=== PATIENT | male | born 2005 | race African-American/Black ===

== ENCOUNTER 2024-11-13 16:54 | Emergency (ER) | payer BC, SELFPAY ==
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
[2024-11-13 17:01] VITALS: BP 136/70; PULSE 94; RESP 14; TEMP 36.8; O2SAT 99
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
--- OUTSIDE RECORDS SUMMARY | 2024-11-13 18:55 | XMS_ITS ---
Author Organization [facility] Address [address] [place] [address] Care Team Providers Care Sales Representative Livestock Name Role Phone Rimma Matthews Primary Care Provider Allergies Allergen (clinical drug ingredient) Drug/Non Drug Allergy documented on EMR Reaction Allergy Type Onset Date Status amoxicillin Amoxicillin hives Drug Allergy Act hortencia Penicillin hives Drug Allergy Active REASON FOR VISIT New Patient Psych Eval Medications Medication SIG (Take, Route, Frequency, Duration) Notes Start Date End Date Status QUEtiapine Fumarate 100 MG 1 tablet in the morning Orally Once a day for 30 days - 500 mg total per day 10/25/2024 Active hydrOXYzine Pamoate 25 MG 1 capsule Orally three times daily for 30 days As needed 10/25/2024 Active Haloperidol Decanoate 100 MG/ML INJECT 100 MG IN THE MUSCLE ONCE EVERY MONTH Intramuscular for 30 Days Active Haloperidol Decanoate 100 MG/ML Intramuscular for 30 Days Ac tive QUEtiapine Fumarate 400 MG 1 tablet at night Orally Once a day for 30 days - 500 mg total per day Active Haloperidol 5 MG 1 tablet at night Or al Once a day for 30 days Active FLUoxetine HCl 10 MG 1 capsule Orally On ce a day for 30 days 11/04/2022 Active Divalproex Sodium 500 MG 1 tablet Orally Twice a day for 30 days Active Benztropine Mesylate 1 MG 1 tablet Oral twice daily for 30 days Active Vistaril 25 MG 1 capsule as needed Orally Up to three times daily for 30 day(s) 11/04/2022 Not-Taking Social History Sex Assigned At : Social History Observation Description Sex Assigned At Male Problems Problem Type SNOMED Code ICD Code Onset Dates Problem Status W/U Status Risk Notes Problem Bipolar affective disorder, currently manic, severe, with psychosis ([id number]) Bipolar affective disorder, current episode manic with psychotic symptoms (F31.2) Active confirmed Encounters Encounter Location Date Provider Diagnosis [address] [place] [address] 10/25/2024 Rimma Matthews Bipolar affective disorder, current episode manic with psychotic symptoms F31.2 ; Cannabis abuse F12.10 and Medication monitoring encounter Z51.81 Assessments Encounter Date Diagnosis (ICD Code) Assessment Notes Treatment Notes Treatment Clinical Notes Section Notes 10/25/2024 Bipolar affective disorder, current episode manic with psychotic symptoms (ICD-10 - F31.2) Reports some improvement with current regimen started at hospital. Increasing Seroquel for psychotic features- VH, paranoia. Continue other medications. Labs ordered. 10/25/2024 Cannabis abuse (ICD-10 - F12.10) Discussed with patient that taking or using herbs, such as marijuana, and/or vitamins and supplements may interfere with or alter the way prescription medications work in the body or cause adverse reactions. Patient voiced understanding. 10/25/2024 Medication monitoring encounter (ICD-10 - Z51.81) 10/25/2024 Other Reasons, potential benefits, potential risks, interactions and side effects of all medications were discussed. The Patient/Guardian asked appropriate questions, appeared to understand the answers, and decided to accept the treatment and continue being followed. Alternatives and expected course without treatment were reviewed. The Patient/Guardian is aware of the need to contact the office or return for an earlier appointment if any problems or concerns arise. May also contact the 24-hour crisis hotline (R), refer to the closest emergency room or call 911 if new symptoms arise of existing symptoms worsen. The Patient/Guardian is aware that this would apply to symptoms like: suicidal ideation, homicidal ideation, high risk behaviors, manic symptoms, psychotic symptoms, physical symptoms, or any other symptoms that may be dangerous to self or others. Greater than 50% of time spent on coordination and counseling where psychopharmacology as well as psychotherapeutic interventions were discussed along with review of treatments in the past. Education provided concerning need for adequate hydration. Patient/Guardian verbalized understanding of education, treatment plan and follow up. This session was completed telephonically with client/parental/guardi an consent: Unable to fully determine movement status, assess appearance, affect, AIMS, or vital signs. Plan Of Treatment Medication Medication Name Sig Start Date Stop Date Notes QUEtiapine Fumarate 100 MG 1 tablet in t he morning Orally Once a day for 30 days 10/25/2024 hydrOXYzine Pamoate 25 MG 1 capsule Oral ly three times daily for 30 days 10/25/2024 QUEtiapine Fumarate 400 MG 1 tablet at n ight Orally Once a day for 30 days Haloperidol 5 MG 1 tablet at night Or al Once a day for 30 days FLUoxetine HCl 10 MG 1 capsule Orally On ce a day for 30 days 11/04/2022 Divalproex Sodium 500 MG 1 tablet Orally Twice a day for 30 days Benztropine Mesylate 1 MG 1 tablet Oral twice daily for 30 days Treatment Notes Assessment Notes Bipolar affective disorder, current episode manic with psychotic symptoms Reports some improvement with current regimen started at hospital. Increasing Seroquel for psychotic features- VH, paranoia. Continue other medications. Labs ordered. Cannabis abuse Discussed with patie nt that taking or using herbs, such as marijuana, and/or vitamins and supplements may interfere with or alter the way prescription medications work in the body or cause adverse reactions. Patient voiced understanding. Other Reasons, potential benefits, potential risks, interactions and side effects of all medications were discussed. The Patient/Guardian asked appropriate questions, appeared to understand the answers, and decided to accept the treatment and continue being followed. Alternatives and expected course without treatment were reviewed. The Patient/Guardian is aware of the need to contact the office or return for an earlier appointment if any problems or concerns arise. May also contact the 24-hour crisis hotline (R), refer to the closest emergency room or call 911 if new symptoms arise of existing symptoms worsen. The Patient/Guardian is aware that this would apply to symptoms like: suicidal ideation, homicidal ideation, high risk behaviors, manic symptoms, psychotic symptoms, physical symptoms, or any other symptoms that may be dangerous to self or others. Greater than 50% of time spent on coordination and counseling where psychopharmacology as well as psychotherapeutic interventions were discussed along with review of treatments in the past. Education provided concerning need for adequate hydration. Patient/Guardian verbalized understanding of education, treatment plan and follow up. This session was completed telephonically with client/parental/guardian consent: Unable to fully determine movement status, assess appearance, affect, AIMS, or vital signs. Future Test Test Name Order Date TSH* 11/17/2024 CBC With Differential/Platelet* 11/18/19 25 Valproic Acid (Depakote)(R),S 11/17/2024 CMP 14 Comprehensive Metabolic Panel* Next Appt Details Follow Up: 3 Weeks, Reason: Psych F/U in-office Progress Notes * Mary QUIJANO JrDOB:2004 (19 yo M)Acc No.[id number]:10/25/2024 Patient: Mary LLANOS Jr Provider: Nils Matthews, MSN, PATIENT CASE COORDINATOR, INSPECTOR SHELLS-C :2005 A ge:19 Y S ex:Male Date:10/25/2024 Address:[address] [place], [place] [id number] Subjective: * Chief Complaints: * N ew Patient Psych Eval * HPI: G AD-7 Screenin. Feeling nervous, anxious, or on edge : , Nearly every day-3. 2 . Not being able to stop or control worrying : , Nearly every day-3. 3 . Worrying too much about different things : , Nearly every day-3. 4 . Trouble sleeping/relaxing : , Nearly every day-3. 5 . Being so restless that it is hard to sit still : , Nearly every day-3. 6 . Becoming easily annoyed or irritable : , Nearly every day-3. 7 . Feeling afraid, as if something awful might happen : , Nearly every day-3. G AD-7 Score T otal score? :. M ood Disorder Questionnaire: Administration Y ou felt so good or so hyper Y es .,?You were irritable Y es ., Y ou felt more self-confident than usual Y es ., Y ou got less sleep than usual but did not miss it N o ., Y ou were more talkative or spoke faster Y es ., Y our thoughts raced or you could not slow thoughts down Y es ., Y ou were easily distracted, had trouble concentrating Y es ., Y ou had more energy than usual Y es ., Y ou were more active or doing many things than usual Y es ., Y ou were more social than usual Y es ., Y ou were more interested in sex than usual Y es ., Y ou did things that were risky, excessive or foolish Y es ., S pending money got you or your family in trouble N o ., I f yes to more than one above, have several happened at the same period of time? Y es ., H ow much of a problem did thse cause you? S erious problem ., H ave any blood relatives had bioplar disorder Y es ., H as a healthcare provider said you have bipolar disorder? Y es ., D ate of Administration 0 10/25/2024 .. D epression Screening: PHQ-9 L ittle interest or pleasure in doing things N early every day, F eeling down, depressed, or hopeless N early every day, T rouble falling or staying asleep, or sleeping too much N early every day, F eeling tired or having little energy N early every day, P oor appetite or overeating N early every day, F eeling bad about yourself or that you are a failure, or have let yourself or your family down N early every day, T rouble concentrating on things, such as reading the newspaper or watching television?Nearly every day, M oving or speaking so slowly that other people could have noticed; or the opposite, being so fidgety or restless that you have been moving around a lot more than usual N early every day, T houghts that you would be better off or of hurting yourself in some way S everal days (Consider Suicide Assessment Risk), T otal Score 2 5, I nterpretation S evere Depression. I ntervention D epression Screening Findings P ositive, F ollow-Up for Depression N o Referral necessary, patient involved in behavioral health treatment .. S creening: [place] Suicide Severity Rating Scale (LF) D o you want to initiate with S creener form, 1 . Wish to be : Have you wished you were or wished you could go to sleep and not wake up? Y es, 2 . Suicidal Thoughts: Have you actually had any thoughts of killing yourself? N o, 6 . Suicide Behavior Question: Have you ever done anything,started to do anything, or prepared to end your life? N o, I nterpretation: L ow Risk. C SSRS Interpretation and Follow Up Plan: CSSRS Interpretation and Follow Up Plan C SSRS Screen documented using SF Y es, R isk Disposition from SF L ow - No Follow Up Plan Required, F ollow Up Plan N o Follow Up Plan required at this time.. S ummary: Expectations of this visit- Medication Management Client is a 19 yo M on the phone stating he has been taking medications but had a lot going on. I lost more people in my life. Reports he was going to see Dr Bolden. I was in the psych dial not too long ago. Onset: Reports hallucinations in the last month Frequency: All the time Location: Anytime I am out of the house, but sometimes in it Triggers- Random, or people on the streets trying to get me. What helps? Playing the [employer], thinking about my kids. Goals- Trying to be the [employer]. I want to buy my 's house, we are really engaged, from her childhood so we can live in it for the rest of our lives. Strengths- Learning things, trying to be a good dad Sleep- Bad, can't sleep at all. Appetite- I will eat anything. I only eat when I have weed. But I have to have money for weed, and I don't have that. Depression- Yes, I don't feel like I am doing enough, not enough to provide for my kids. Hopeless/Helpless- Denies Interest level- Good Concentration- I am laser focused. I got my eyes on the prize. Energy Level- Good, high Anxiety- Bad. I feel like I am going to all the time. I feel like I am always in war, like I feel like I am not going to make it home. Anger/irritability- All the time when I am out of the house. I am angry right now. My blood is hot. Suicidal Ideation- Denies I have kids Homicidal Ideation- Only if someone messes with me. Reports he has been threatened by his [id number], but I don't have a problem with him. He has a problem with me. I would smoke with him if he wanted to. I am not going out for him, I want to keep the peace. Racing thoughts- Denies Distractible- Yes Indiscretion/Inhibition- Fair Risk taking- Yes Grandiosity- Sometimes Missed sleep and still felt good- Yes Talkativeness- Yes Impulsivity- Yes Hallucinations- Yes, I saw a person in a car. States this is at night. I see things at night, people. Reports it is people he has known that are . States this is every night. Reports this has been going on for about a month. Paranoia- Yes, all the time. I am hostile with everyone because they are trying to kill me or they are all threats. I will hurt someone if I am not medicated. Delusions- People trying to kill me. I have [place] blood though, shahla blood. Past Psychiatric History- Bipolar, depression, anxiety Psychiatric Medications- Prozac, Seroquel, Haloperidol, Atarax, Benztropine I am not getting the injections. I did it for 30 days and it did me right, but I don't want another shot. Medication Adherence- I take it Medication efficacy- It is okay Side effects- Denies Medical Concerns- Denies Other Medications- Denies Allergies- PCN Head Injury/ Loss of Consciousness- Denies Seizures: Denies Therapist- Denies Primary Care Physician- None currently Children- 3 kids, they are doing good. Siblings- 2 brothers, 2 sisters Family mental health history- Mom with bipolar depression Dad with anxiety Social History- Has a fiance he lives with, 3 kids, states fiance is location- [place], [place] Grew up in [place] Current home: independent living, group housing, homeless? Dependent with family Describe childhood- Good Abuse/Trauma- Denies Highest Level of Education- 10th grade Occupation- Working at a [employer], fulltime Hobbies/Interests- Just making money, staying focused with it, skate boarding Spiritual Affiliation- Denies Legal History- Denies Substance Use- ETOH and marijuana, some caffeine. * ROS: P sych ROS: Constitutional D enies. E yes D enies. E ars/Nose/Mouth/Throat D enies. R espiratory D enies. A llergic/Immunologic D enies.?Cardiovascular D enies. G I D enies. M usculoskeletal D enies. N eurological D enies. I ntegumentary D enies. E ndocrine D enies. P sych R eports anger/irritability. * Medical History: * Surgical History: b ilateral foot repair * Hospitalization/Major Diagno stic Procedure: M H * Family History: F ather: alive, anxiety. M other: alive, diagnosed with Depression, Bipolar disorder, unspecified. S iblings: alive. 2 brother(s) , 2 sister(s) - healthy. . * Social History: P rimary Social History: L iving Arrangement L iving Arrangement: D ependent Living, L iving with: Nils kate(s), Brother, Sister, I s this a supportive environment? Y es. A lcohol Use A lcohol Use Frequency: N ever. I llicit Substance Usage I llicit Substance Usage: N o.?Employment Status E mployment Status: U nemployed. * Medications: T akingHaloperidol Decanoate 100 MG/ML Solution INJECT 100 MG IN THE MUSCLE ONCE EVERY MONTH Intramuscular Haloperidol Decanoate 100 MG/ML Solution Intramuscular QUEtiapine Fumarate 400 MG Tablet TAKE 1 TABLET BY MOUTH AT BEDTIME Oral Benztropine Mesylate 1 MG Tablet TAKE 1 TABLET BY MOUTH TWICE DAILY Oral Divalproex Sodium 500 MG Tablet Delayed Release TAKE 1 TABLET BY MOUTH TWICE DAILY Oral Haloperidol 5 MG Tablet Oral Taking Haloperidol Decanoate 100 MG/ML Solution INJECT 100 MG IN THE MUSCLE ONCE EVERY MONTH Intramuscular Taking Haloperidol Decanoate 100 MG/ML Solution Intramuscular Taking QUEtiapine Fumarate 400 MG Tablet TAKE 1 TABLET BY MOUTH AT BEDTIME Oral Taking Benztropine Mesylate 1 MG Tablet TAKE 1 TABLET BY MOUTH TWICE DAILY Oral Taking Divalproex Sodium 500 MG Tablet Delayed Release TAKE 1 TABLET BY MOUTH TWICE DAILY Oral Taking Haloperidol 5 MG Tablet Oral Not-TakingFLUoxetine HCl 10 MG Capsule 1 capsule Orally Once a day Vistaril 25 MG Capsule 1 capsule as needed Orally Up to three times daily Not-Taking FLUoxetine HCl 10 MG Capsule 1 capsule Orally Once a day Not-Taking Vistaril 25 MG Capsule 1 capsule as needed Orally Up to three times daily * Allergies: A moxicillin: hivesPenicillin: hivesno[Allergies Verified] Objective: * Vitals: I nitials: sw, Pain scale:10. * Examination: M ental Status Exam: SENSORIUM AND COGNITION Alert, Oriented to Person, Oriented to Place, Oriented to Time, Oriented to Situation. ATTENTION AND CONCENTRATION I mpaired attention/concentration. APPEARANCE Appropriate. ATTITUDE AND BEHAVIOR R eceptive. MEMORY Immediate, Recent, Remote. EYE CONTACT Good. AFFECT B road/Full. MOOD E uphoric. SPEECH QUANTITY V erbose. SPEECH QUALITY R apid, Appropriate volume. THOUGHT PROCESS T angential. THOUGHT CONTENT D elusions: Paranoid. LANGUAGE A ppropriate- WNL. MOTOR ACTIVITY Goal directed, limited due to zoom. SUICIDAL IDEATION Denies suicidal ideation. HOMICIDAL IDEATION Denies homicidal ideation, reports anger but denies any thoughts of wanting to kill another person unless I was protecting myself and it came to that. . HALLUCINATIONS V isual hallucinations. INSIGHT P oor. JUDGMENT P oor. FUND OF KNOWLEDGE Fair-poor. ABILITY TO PARTICIPATE IN TREATMENT M oderate. WILLINGNESS TO PARTICIPATE IN TREATMENT M oderate. e xam limited due to zoom encounter. Assessment: * Assessment: 1. C annabis abuse - F12.10 2 . B ipolar affective disorder, current episode manic with psychotic symptoms - F31.2 (Primary) 3 . M edication monitoring encounter - Z51.81 Plan: * Treatment: 2. C annabis abuse Notes: Discussed with patient that taking or using herbs, such as marijuana, and/or vitamins and supplements may interfere with or alter the way prescription medications work in the body or cause adverse reactions. Patient voiced understanding. 3. M edication monitoring encounter L AB: CBC With Differential/Platelet* (Ordered for 11/17/2024) L AB: CMP 14 Comprehensive Metabolic Panel* (Ordered for 11/17/2024) L AB: TSH* (Ordered for 11/17/2024) L AB: Valproic Acid (Depakote)(R),S (Ordered for 11/17/2024) 4. O thers Notes: Reasons, potential benefits, potential risks, interactions and side effects of all medications were discussed. The Patient/Guardian asked appropriate questions, appeared to understand the answers, and decided to accept the treatment and continue being followed. Alternatives and expected course without treatment were reviewed. The Patient/Guardian is aware of the need to contact the office or return for an earlier appointment if any problems or concerns arise. May also contact the 24-hour crisis hotline (R), refer to the closest emergency room or call 911 if new symptoms arise of existing symptoms worsen. The Patient/Guardian is aware that this would apply to symptoms like: suicidal ideation, homicidal ideation, high risk behaviors, manic symptoms, psychotic symptoms, physical symptoms, or any other symptoms that may be dangerous to self or others. Greater than 50% of time spent on coordination and counseling where psychopharmacology as well as psychotherapeutic interventions were discussed along with review of treatments in the past. Education provided concerning need for adequate hydration. Patient/Guardian verbalized understanding of education, treatment plan and follow up. This session was completed telephonically with client/parental/guardian consent: Unable to fully determine movement status, assess appearance, affect, AIMS, or vital signs. * Procedure Codes: * Follow Up: 3 Weeks (Reason: Psych F/U in-office) * * ANOLOGY TEACHER Sign off status: Completed true * Provider: Nils Matthews, MSN, PATIENT CASE COORDINATOR, INSPECTOR SHELLS-C Date: 0 10/25/2024 Generated for Min feliciano/Rica/Susan on: 0 11/13/2024 06:55 PM CDT History and Physical Notes * HPI (History of Present Illness) Category Sub-Category Detail Notes Category Not es Depression Screening PHQ-9 Little inte rest or pleasure in doing things: Nearly every day Feeling down, depressed, or hopeless: Ne balaji every day Trouble falling or staying asleep, or sl eeping too much: Nearly every day Feeling tired or having little energy: N early every day Poor appetite or overeating: Nearly ever y day Feeling bad about yourself o r that you are a failure, or have let yourself or your family down: Nearly every day Trouble concentrating on thi ngs, such as reading the newspaper or watching television: Nearly every day Moving or speaking so slowly that other people could have noticed; or the opposite, being so fidgety or restless that you have been moving around a lot more than usual: Nearly every day Thoughts that you would be b abdiaziz off or of hurting yourself in some way: Several days (Consider Suicide Assessment Risk) Total Score: 25 Interpretation: Severe Depression Intervention Depression Screening Findings: P ositive Follow-Up for Depression: No Referral necessary, patient involved in behavioral health treatment . Summary Expectations of this visit- Medication Management Client is a 19 yo M on the phone stating he has been taking medications but had a lot going on. I lost more people in my life. Reports he was going to see Dr Bolden. I was in the psych dial not too long ago. Onset: Reports hallucinations in the last month Frequency: All the time Location: Anytime I am out of the house, but sometimes in it Triggers- Random, or people on the streets trying to get me. What helps? Playing the [employer], thinking about my kids. Goals- Trying to be the [employer]. I want to buy my 's house, we are really engaged, from her childhood so we can live in it for the rest of our lives. Strengths- Learning things, trying to be a good dad Sleep- Bad, can't sleep at all. Appetite- I will eat anything. I only eat when I have weed. But I have to have money for weed, and I don't have that. Depression- Yes, I don't feel like I am doing enough, not enough to provide for my kids. Hopeless/Helpless- Denies Interest level- Good Concentration- I am laser focused. I got my eyes on the prize. Energy Level- Good, high Anxiety- Bad. I feel like I am going to all the time. I feel like I am always in war, like I feel like I am not going to make it home. Anger/irritability- All the time when I am out of the house. I am angry right now. My blood is hot. Suicidal Ideation- Denies I have kids Homicidal Ideation- Only if someone messes with me. Reports he has been threatened by his [id number], but I don't have a problem with him. He has a problem with me. I would smoke with him if he wanted to. I am not going out for him, I want to keep the peace. Racing thoughts- Denies Distractible- Yes Indiscretion/Inhibition- Fair Risk taking- Yes Grandiosity- Sometimes Missed sleep and still felt good- Yes Talkativeness- Yes Impulsivity- Yes Hallucinations- Yes, I saw a person in a car. States this is at night. I see things at night, people. Reports it is people he has known that are . States this is every night. Reports this has been going on for about a month. Paranoia- Yes, all the time. I am hostile with everyone because they are trying to kill me or they are all threats. I will hurt someone if I am not medicated. Delusions- People trying to kill me. I have Jennifer blood though, shahla blood. Past Psychiatric History- Bipolar, depression, anxiety Psychiatric Medications- Prozac, Seroquel, Haloperidol, Atarax, Benztropine I am not getting the injections. I did it for 30 days and it did me right, but I don't want another shot. Medication Adherence- I take it Medication efficacy- It is okay Side effects- Denies Medical Concerns- Denies Other Medications- Denies Allergies- PCN Head Injury/ Loss of Consciousness- Denies Seizures: Denies Therapist- Denies Primary Care Physician- None currently Children- 3 kids, they are doing good. Siblings- 2 brothers, 2 sisters Family mental health history- Mom with bipolar depression Dad with anxiety Social History- Has a fiance he lives with, 3 kids, states fiance is location- [place], [place] Grew up in [place] Current home: independent living, group housing, homeless? Dependent with family Describe childhood- Good Abuse/Trauma- Denies Highest Level of Education- 10th grade Occupation- Working at a [employer], fulltime Hobbies/Interests- Just making money, staying focused with it, [place] Spiritual Affiliation- Denies Legal History- Denies Substance Use- ETOH and marijuana, some caffeine ELISABETH-7 Screening 1. Feeling nervous, anxious, or on edge :, Nearly every day-3 2. Not being able to stop or control wor rying :, Nearly every day-3 3. Worrying too much about different thi ngs :, Nearly every day-3 4. Trouble sleeping/relaxing :, Nearly e very day-3 5. Being so restless that it is hard to sit still :, Nearly every day-3 6. Becoming easily annoyed or irritable :, Nearly every day-3 7. Feeling afraid, as if something awful might happen :, Nearly every day-3 ELISABETH-7 Score Total score: : Mood Disorder Questionnaire Administration You felt so goo d or so hyper: Yes . You were irritable: Yes . You felt more self-confident than usual: Yes . You got less sleep than usual but did no t miss it: No . You were more talkative or spoke faster: Yes . Your thoughts raced or you could not slo w thoughts down: Yes . You were easily distracted, had trouble concentrating: Yes . You had more energy than usual: Yes . You were more active or doing many thing s than usual: Yes . You were more social than usual: Yes . You were more interested in sex than usu al: Yes . You did things that were risky, excessiv e or foolish: Yes . Spending money got you or your family in trouble: No . If yes to more than one abov e, have several happened at the same period of time?: Yes . How much of a problem did thse cause you ?: Serious problem . Have any blood relatives had bioplar dis order: Yes . Has a healthcare provider said you have bipolar disorder?: Yes . Date of Administration: 10/25/2024 . Screening [place] Suicide Sev erity Rating Scale (LF) Do you want to initiate with: Screener form 1. Wish to be : Have you wished you were or wished you could go to sleep and not wake up?: Yes 2. Suicidal Thoughts: Have you actually had any thoughts of killing yourself?: No 6. Suicide Behavior Question: Have you ever done anything,started to do anything, or prepared to end your life?: No Interpretation:: Low Risk CSSRS Interpretation and Follow Up Plan CSSRS Interpretation and Follow Up Plan CSSRS Screen documented using SF: Yes Risk Disposition from SF: Low - No Follo w Up Plan Required Follow Up Plan: No Follow Up Plan requir ed at this time. Examination Category Sub-Category Detail Notes Category Not es Mental Status Exam SENSORIUM AND COGNITION Alert, Oriented to Person, Oriented to Place, Oriented to Time, Oriented to Situation exam limited due to zoom encounter ATTENTION AND CONCENTRATION Impaired att ention/concentration APPEARANCE Appropriate ATTITUDE AND BEHAVIOR Receptive MEMORY Immediate, Recent, R emote EYE CONTACT Good AFFECT Broad/Full MOOD Euphoric SPEECH QUANTITY Verbose SPEECH QUALITY Rapid, Appropriate v olume THOUGHT PROCESS Tangential THOUGHT CONTENT Delusions: Paranoid MOTOR ACTIVITY Goal directed, limit ed due to zoom SUICIDAL IDEATION Denies suicidal idea tion HOMICIDAL IDEATION Denies homicidal alexandra ation, reports anger but denies any thoughts of wanting to kill another person unless I was protecting myself and it came to that. HALLUCINATIONS Visual hallucination s INSIGHT Poor JUDGMENT Poor FUND OF KNOWLEDGE Fair-poor ABILITY TO PARTICIPATE IN TREATMENT Mode rate WILLINGNESS TO PARTICIPATE I N TREATMENT Moderate LANGUAGE Appropriate- WNL
--- OUTSIDE RECORDS SUMMARY | 2024-11-13 18:55 | XMS_ITS ---
Author Organization [facility] Address [address] [place] [address] Care Team Providers Care Software Business Analyst Name Role Phone Rimma Matthews Primary Care Provider [phone] Habib, Arif Unavailable [phone] REASON FOR VISIT RX Social History Sex Assigned At : Social History Observation Description Sex Assigned At Male Encounters Encounter Location Date Provider Diagnosis [facility] [address] [place] [address] 11/06/2024 Arif Kimi Plan Of Treatment No Information Progress Notes * Mary QUIJANO JrDOB:2004 (19 yo M)Acc No.[id number]:11/06/2024 Patient: Mary LLANOS Jr :2005 A ge:19 Y S ex:Male Address:[address] [place] [id number] * true * Date: Generated for Neeli jodie/Rica/eTransmitting on: 0 11/13/2024 06:55 PM CDT
--- OUTSIDE RECORDS SUMMARY | 2024-11-13 18:55 | XMS_ITS | Patient Health Record ---
Author Organization [facility] Address [address] [place] [address] Care Team Providers Care Sheriff'S Detective Name Role Phone Rimma Matthews Primary Care Provider Ross Bolden Unavailable [phone] Allergies Allergen (clinical drug ingredient) Drug/Non Drug Allergy documented on EMR Reaction Allergy Type Onset Date Status amoxicillin Amoxicillin hives Drug Allergy Act hortencia Penicillin hives Drug Allergy Active Reason For Referral No Information Medications Medication SIG (Take, Route, Frequency, Duration) Notes Start Date End Date Status QUEtiapine Fumarate 100 MG 1 tablet in the morning Orally Once a day for 30 days - 500 mg total per day 10/25/2024 Active hydrOXYzine Pamoate 25 MG 1 capsule Orally three times daily for 30 days As needed 10/25/2024 Active Haloperidol 5 MG 1 tablet at night Or al Once a day for 30 days Active FLUoxetine HCl 10 MG 1 capsule Orally On ce a day for 30 days 11/04/2022 Active Divalproex Sodium 500 MG 1 tablet Orally Twice a day for 30 days Active Haloperidol Decanoate 100 MG/ML INJECT 100 MG IN THE MUSCLE ONCE EVERY MONTH Intramuscular for 30 Days Active Haloperidol Decanoate 100 MG/ML Intramuscular for 30 Days Ac tive QUEtiapine Fumarate 400 MG 1 tablet at night Orally Once a day for 30 days - 500 mg total per day Active Benztropine Mesylate 1 MG 1 tablet Oral twice daily for 30 days Active Vistaril 25 MG 1 capsule as needed Orally Up to three times daily for 30 day(s) 11/04/2022 Not-Taking Social History Tobacco Use: Social History Observation Description Date Details (start date - stop date) Never Smoker NA - NA Sex Assigned At : Social History Observation Description Sex Assigned At Male Dont use, Tobacco Use/Smoking Question Answer Notes Are you a nonsmoker Problems Problem Type SNOMED Code ICD Code Onset Dates Problem Status W/U Status Risk Notes Problem Generalized anxiety disorder (49023667) Generalized anxiety disorder (F41.1) Active confirmed likely panic disorder as well Problem Mood disorder (02400630) Mood disorder (F39) Active confirmed MDD vs Bipolar chemistry Problem Cannabis abuse (55020657) Cannabis abuse (F12.10) Active confirmed Problem Bipolar affective disorder, currently manic, severe, with psychosis (971067225) Bipolar affective disorder, current episode manic with psychotic symptoms (F31.2) Active confirmed Encounters Encounter Location Date Provider Diagnosis [address] [address] 10/25/2024 Rimma Matthews Bipolar affective disorder, current episode manic with psychotic symptoms F31.2 ; Cannabis abuse F12.10 and Medication monitoring encounter Z51.81 [facility] [address] [address] 11/06/2024 Ross Bolden Assessments Encounter Date Diagnosis (ICD Code) Assessment Notes Treatment Notes Treatment Clinical Notes Section Notes 10/25/2024 Cannabis abuse (ICD-10 - F12.10) Discussed with patient that taking or using herbs, such as marijuana, and/or vitamins and supplements may interfere with or alter the way prescription medications work in the body or cause adverse reactions. Patient voiced understanding. 10/25/2024 Bipolar affective disorder, current episode manic with psychotic symptoms (ICD-10 - F31.2) Reports some improvement with current regimen started at hospital. Increasing Seroquel for psychotic features- VH, paranoia. Continue other medications. Labs ordered. 10/25/2024 Medication monitoring encounter (ICD-10 - Z51.81) [...] AIMS, or vital signs. Plan Of Treatment No Information Insurance Providers Payer Name Payer Address Payer Phone Subscriber Number Group Number Insured Name Patient Relationship to Insured Coverage Start Date Coverage End Date [facility] [address] [place] [phone] [id number] Mary Quijano Self - patient is the insured [address] [address] [id number] Mary Quijano Self - patient is the insured 4 Medical (General) History Surgical History Surgery Date(Month/Year) bilateral foot repair Hospitalization History Reason Date(Month/Year)
--- NOTE | 2024-11-13 20:35 | PC.NURSE ---
Patient called out for room placement @ 2031. No answer.
--- NOTE | 2024-11-13 22:15 | PC.NURSE ---
Pt called for room placement @ 8790. No answer.
--- OUTSIDE RECORDS SUMMARY | 2024-11-14 02:10 | XMS_ITS ---
Author Organization [facility] Address [address] [place] [address] Care Team Providers Care Care Navigator Name Role Phone Rimma Matthews Primary Care Provider Habib, Arif Unavailable [phone] REASON FOR VISIT RX Social History Sex Assigned At : Social History Observation Description Sex Assigned At Male Encounters Encounter Location Date Provider Diagnosis [facility] [address] [place] [address] 11/06/2024 Arif Kimi Plan Of Treatment No Information Progress Notes * Mary QUIJANO JrDOB:2004 (19 yo M)Acc No.[id number]:11/06/2024 Patient: Mary LLANOS Jr :2005 A ge:19 Y S ex:Male Address:[address] [place] [id number] * true * Date: Generated for Min feliciano/Rica/eTransmitting on: 0 11/14/2024 02:10 AM CDT
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
--- OUTSIDE RECORDS SUMMARY | 2024-11-14 02:10 | XMS_ITS | Patient Health Record ---
Author Organization [facility] Address [address] [place] [address] Care Team Providers Care Greens Tier Name Role Phone Rimma Matthews Primary Care Provider [phone] Ross Bolden Unavailable [phone] Allergies Allergen (clinical drug ingredient) Drug/Non Drug [...] Status Risk Notes Problem Generalized anxiety disorder (25882918) Generalized anxiety disorder (F41.1) Active confirmed likely panic disorder as well Problem Mood disorder (58233449) Mood disorder (F39) Active confirmed MDD vs Bipolar chemistry Problem Cannabis abuse (34453623) Cannabis abuse (F12.10) Active confirmed Problem Bipolar affective disorder, currently manic, severe, with psychosis (473257522) Bipolar affective disorder, current episode manic with psychotic symptoms (F31.2) Active confirmed Encounters Encounter Location Date Provider Diagnosis [address] [address] 10/25/2024 Rimma Matthews Bipolar affective disorder, current episode manic with psychotic symptoms F31.2 ; Cannabis abuse F12.10 and Medication monitoring encounter Z51.81 [facility] [address] [address] 11/06/2024 Ross Bolden Assessments Encounter Date Diagnosis [...] Insured Coverage Start Date Coverage End Date [facility] Health Plan [address] [place] [id number] Mary Quijano Self - patient is the insured [address] [address] [id number] Mary Quijano Self - patient is the insured 4 Medical (General) History Surgical History Surgery Date(Month/Year) bilateral foot repair Hospitalization History Reason Date(Month/Year)
== END 2024-11-13 20:32 | disposition left against medical advice (07) ==
LOC: ANHED 11-14 02:08
PROVIDERS: Emergency Provider Registered Nurse
DX: S06.0X0A Concussion without loss of consciousness, initial encounter (principal); S16.1XXA Strain of muscle, fascia and tendon at neck level, initial encounter; T14.8XXA Other injury of unspecified body region, initial encounter; V19.40XA Pedal cycle driver injured in collision with unspecified motor vehicles in traffic accident, initial encounter; Y93.55 Activity, bike riding
CPT/HCPCS: 70450; 72125; 73130; 73552; 99282; 99284